=== PATIENT | female | born 1995 | race African-American/Black ===

== ENCOUNTER 2022-09-03 15:23 | Emergency (ER) | payer OTHER ==
[~2022-09-03] VITALS: Ht 172.7 cm; Wt 91.0 kg
[2022-09-03 15:27] VITALS: BP 104/74
[2022-09-03] MEDS ORDERED: BACITRACIN ZINC OINT UDPKT TOP ONE (16:45)
[2022-09-03] MEDS ORDERED: LIDOCAINE HCL/PF 1% 10 MG/ML 5ML VIAL INFIL NR (16:45)
[2022-09-03] MEDS ORDERED: BACITRACIN ZINC OINT UDPKT TOP NR (16:45)
[2022-09-03] MEDS ORDERED: TETANUS, DIPHTHERIA, PERTUSSIS VAC/PF 0.5ML (>10YR OLD) IM ONE (16:45)
[2022-09-03] MEDS ORDERED: LIDOCAINE HCL/PF 1% 10 MG/ML 5ML VIAL INFIL ONE (16:45)
== END 2022-09-04 01:47 | disposition home or self-care (01) ==
LOC: ER 15:23
DX: S01.81XA Laceration without foreign body of other part of head, initial encounter (principal); Y07.03 Male partner, perpetrator of maltreatment and neglect; X99.8XXA Assault by other sharp object, initial encounter; Y93.89 Activity, other specified; Y92.018 Other place in single-family (private) house as the place of occurrence of the external cause
CPT/HCPCS: 12015; 70450; 90471; 90715; 99284; J3490; Z7610